=== PATIENT | male | born 2000 | race African-American/Black ===

== ENCOUNTER 2021-09-29 00:36 | Emergency (ER) | payer MEDICAID ==
[~2021-09-29] VITALS: Ht 172.7 cm; Wt 80.0 kg
[2021-09-29 04:46] VITALS: BP 129/64
== END 2021-09-29 04:49 | disposition home or self-care (01) ==
LOC: ER 00:36
DX: F41.9 Anxiety disorder, unspecified (principal); F43.10 Post-traumatic stress disorder, unspecified; F90.9 Attention-deficit hyperactivity disorder, unspecified type
CPT/HCPCS: 93005; 99283

== ENCOUNTER 2022-02-27 18:56 | Emergency (ER) | payer MEDICAID ==
[~2022-02-27] VITALS: Ht 177.8 cm; Wt 59.0 kg
[2022-02-27 19:00] VITALS: BP 120/83
== END 2022-02-27 23:08 | disposition left against medical advice (07) ==
LOC: ER 19:07
DX: Z53.21 Procedure and treatment not carried out due to patient leaving prior to being seen by health care provider (principal)